=== PATIENT | male | born 1995 | race Caucasian/White ===

== ENCOUNTER 2023-07-20 06:56 | Outpatient (OUT) | payer OTHER, SELFPAY ==
--- NOTE | 2023-07-20 07:17 | US_ITS ---
The [address] [address] Patient Name: BRENDA WAY MRN: [id number] date: 1995 Sex: M Assigned Patient Location: US Current Patient Location: US Accession/Order Number: [id number] Exam Date: 07/20/2023 07:30 Report Date: 07/20/2023 08:14 At the request of: JENNIFER COREAS Procedure: US right upper quadrant EXAM: US right upper quadrant HISTORY: Abnormal Liver Function Studies R94.5 COMPARISON: None. TECHNIQUE: Real-time Limited abdomen ultrasound. Findings: Evaluation of pancreas is limited due to overlying bowel gas. The visualized portions are unremarkable. The liver measures 18.9 cm. Echogenic and coarsened parenchymal echotexture. No focal intrahepatic mass. The main portal vein is patent and demonstrates hepatopedal flow. There are multiple stones within the gallbladder. No gallbladder wall thickening or pericholecystic fluid. The technologist reports a negative sonographic Winchester's sign. No biliary ductal dilatation. The common bile duct measures 0.6 cm. The right kidney measures 12.2 cm. There is good corticomedullary differentiation. Within the interpolar region there is a nonobstructing 0.2 x 0.2 x 0.2 cm stone. Similar nonobstructing stone within the lower pole the kidney measuring 0.5 x 0.3 x 0.4 cm. No collecting system dilatation. No focal mass or perinephric fluid collection. US/US right upper quadrant IMPRESSION: 1. Echogenic and coarsened hepatic parenchymal echotexture as can be seen with diffuse hepatocellular disease such as fatty infiltration. 2. Cholelithiasis. 3. Nonobstructing right renal stones. Electronically authenticated by: ARIANE PEREZ Date: 07/20/2023 08:14
== END 2023-07-20 06:57 | disposition home or self-care (01) ==
LOC: US 07:09
PROVIDERS: Visit Provider Family Medicine
DX: R94.5 Abnormal results of liver function studies (principal); K80.20 Calculus of gallbladder without cholecystitis without obstruction; N20.0 Calculus of kidney
CPT/HCPCS: 76705